=== PATIENT | male | born 1950 | race Caucasian/White ===

== ENCOUNTER 2019-12-11 19:17 | Inpatient (IN) ==
[2019-12-11 22:20] LABS: Basophils # 0.1 10*3/uL (0.0-0.2); Basophils % 0.3 % (0.0-0.8); Eosinophils % 0.1 % (0.00-10.9); Hematocrit 46.1 VOL% (42.0-52.0); Hemoglobin 15.4 GM/DL (14.0-18.0); Immature Granulocytes % 0.4 %; Immature Granulocytes Absolute 0.06 #; Lymphocytes # 0.8 10*3/uL (1.4-4.0); Lymphocytes % 5.7 % (21.2-54.2); Mean Corpuscular HGB Conc 33.4 GM/DL (32-36); Mean Corpuscular Volume 90.6 FL (87-102); Monocytes % 7.8 % (1.7-12.7); Neutrophils % 85.7 % (38.7-73.9); Platelet Count 192 T/CUMM (130-400); Red Blood Count 5.09 MC/CUMM (3.8-5.5); Red Cell Distribution Width 12.9 % (9.3-17.3); White Blood Count 14.3 T/CUMM (4-12)
[2019-12-11 22:42] LABS: Albumin 3.8 G/DL (3.4-5.0); Osmolality,Calculated 267.5 MOS/KG (273-304); Total Protein 7.3 G/DL (6.4-8.3)
[2019-12-11] MEDS ORDERED: NITROGLYCERIN SL 0.4 MG TABLET SL STA (22:55)
[2019-12-11] MEDS ORDERED: ASPIRIN EC 325 MG TABLET PO STA (22:55)
[2019-12-11] MEDS ORDERED: ONDANSETRON 4 MG/2 ML VIAL IV PRN (23:54)
[2019-12-11] MEDS ORDERED: PROMETHAZINE 25 MG TABLET PO PRN (23:54)
[2019-12-11] MEDS ORDERED: guaiFENesin/DM ER 600-30 MG TABLET PO PRN (23:54)
[2019-12-11] MEDS ORDERED: ACETAMINOPHEN 325 MG TABLET PO PRN (23:54)
[2019-12-11] MEDS ORDERED: ZALEPLON 5 MG CAPSULE PO PRN (23:54)
[2019-12-11] MEDS ORDERED: DOCUSATE SODIUM 100 MG CAPSULE PO PRN (23:54)
[2019-12-11] MEDS ORDERED: hydrALAZINE 20 MG/1 ML VIAL IV PRN (23:59)
[2019-12-12] MEDS ORDERED: GLUCAGON 1 MG VIAL IM PRN (01:15)
[2019-12-12] MEDS ORDERED: DEXTROSE 50% 25 GM/50 ML VIAL IV PRN (01:15)
[2019-12-12] MEDS ORDERED: ENOXAPARIN 150 MG/ML SYRINGE SUBCUT SCH (02:00)
[2019-12-12 06:04] LABS: Basophils % 0.3 % (0.0-0.8); Eosinophils # 0.1 10*3/uL (0.0-0.87); Eosinophils % 0.6 % (0.00-10.9); Hematocrit 42.7 VOL% (42.0-52.0); Hemoglobin 14.3 GM/DL (14.0-18.0); Immature Granulocytes % 0.5 %; Immature Granulocytes Absolute 0.05 #; Lymphocytes # 1.7 10*3/uL (1.4-4.0); Lymphocytes % 16.8 % (21.2-54.2); Mean Corpuscular HGB Conc 33.5 GM/DL (32-36); Mean Corpuscular Volume 90.5 FL (87-102); Mean Platelet Volume 10.5 FL (9.6-12.0); Monocytes % 11.2 % (1.7-12.7); Neutrophils % 70.6 % (38.7-73.9); Platelet Count 193 T/CUMM (130-400); Red Blood Count 4.72 MC/CUMM (3.8-5.5); Red Cell Distribution Width 12.8 % (9.3-17.3); White Blood Count 10.2 T/CUMM (4-12)
[2019-12-12 07:25] LABS: Albumin 3.4 G/DL (3.4-5.0); Bilirubin,Total 0.9 MG/DL (0.2-1.0); Calcium 8.5 MG/DL (8.5-10.1); Osmolality,Calculated 262.8 MOS/KG (273-304); Thyroid Stimulating Hormone 3.15 uIU/ml (0.358-3.74); Total Protein 6.8 G/DL (6.4-8.3); VLDL CHOLESTEROL 21.8 MG/DL
[2019-12-12 07:38] LABS: Risk Ratio 1.63
[2019-12-12] MEDS ORDERED: PANTOPRAZOLE 40 MG TABLET PO SCH (09:00)
[2019-12-12] MEDS: INSULIN LISPRO 100 UNIT/ML SUBCUT SCH ×2 (09:03→13:22)
[2019-12-12 12:18] VITALS: BP 132/93
[2019-12-12] MEDS ORDERED: METOPROLOL TARTRATE 50 MG TABLET PO SCH (12:30)
[2019-12-12] MEDS ORDERED: ROSUVASTATIN 20 MG TABLET PO SCH (21:00)
[2019-12-13] MEDS ORDERED: ASPIRIN EC 81 MG TABLET PO SCH (09:00)
== END 2019-12-12 14:00 | disposition left against medical advice (07) | DRG 312 ==
LOC: N.ED 19:17 → N.EDINP 23:54 → SUATTDRO 23:54 → N.TELES 12-12 00:38
PROVIDERS: ADMIT Internal Medicine; ATTEND Phlebology